=== PATIENT | female | born 2005 | race Caucasian/White ===

== ENCOUNTER 2024-09-16 14:27 | Emergency (ER) | payer OTHER ==
[~2024-09-16] VITALS: Ht 162.6 cm; Wt 70.6 kg
[2024-09-16 15:08] LABS: CORONAVIRUS COVID-19 AG NEGATIVE (NEGATIVE); INFLUENZA A AG NEGATIVE (NEGATIVE); INFLUENZA B AG NEGATIVE (NEGATIVE)
[2024-09-16] MEDS ORDERED: AVIANE1 EACH PO (15:16)
[2024-09-16] MEDS ORDERED: ALBUTEROL SULFATE 8 GM HOME.PACK INH ONE (16:45)
[2024-09-16] MEDS ORDERED: predniSONE 20 MG TAB PO ONE (16:45)
[2024-09-16] MEDS ORDERED: INHALER, ASSIST DEVICES 1 EACH SPACER MISC ONE (16:45)
[2024-09-16] MEDS ORDERED: AMOXICILLIN 500 MG HOME.PACK PO ONE (18:00)
[2024-09-16] MEDS ORDERED: AMOXICILLIN 500 MG CAP PO ONE (18:00)
[2024-09-16] MEDS ORDERED: PREDNISONE20 MG PO (18:02)
[2024-09-16] MEDS ORDERED: AMOXICILLIN500 MG PO (18:02)
[2024-09-16 18:10] VITALS: BP 118/77
== END 2024-09-16 18:10 | disposition home or self-care (01) ==
LOC: ED 14:27
PROVIDERS: Emergency Medicine
DX: J18.9 Pneumonia, unspecified organism (principal); Z79.899 Other long term (current) drug therapy
CPT/HCPCS: 36415; 71045; 94640; 94664; 99283-25; J7512

== ENCOUNTER 2025-01-24 15:23 | Emergency (ER) | payer OTHER ==
[~2025-01-24] VITALS: Ht 162.6 cm; Wt 70.6 kg
[~2025-01-24 15:23] MED LIST: AMOXICILLIN500 MG PO; AVIANE1 EACH PO; PREDNISONE20 MG PO
[2025-01-24] MEDS ORDERED: HYDROCODONE/ACETA 5/325 TAB PO ONE (16:15)
[2025-01-24 16:31] VITALS: BP 128/84
== END 2025-01-24 16:31 | disposition home or self-care (01) ==
LOC: ED 15:23
DX: M25.561 Pain in right knee (principal)
CPT/HCPCS: 73560; 99283